=== PATIENT | male | born 1940 | race Caucasian/White ===

== ENCOUNTER 2021-04-16 07:25 | Day surgery (SDC) | payer MEDICARE, OTHER ==
[2021-04-16] VITALS (8 sets, daily range): BP systolic 128–166; BP diastolic 77–99
[~2021-04-16] VITALS: Ht 177.8 cm; Wt 95.8 kg
[2021-04-16] MEDS ORDERED: ceFAZolin inj. 2,000 MG in normal saline soln 50 ML IV ONE (08:05)
[2021-04-16] MEDS ORDERED: normal saline 1000ml 1,000 ML IV PRN (08:05)
[2021-04-16] MEDS ORDERED: VANCOMYCIN 1,500MG in NS 300 ML IVPB IV ONE (08:05)
[2021-04-16] MEDS ORDERED: ceFAZolin 2gm in dextrose, iso 50 ML IV ONE (08:20)
[2021-04-16 08:32] LABS: HEMATOCRIT 39.6 % (42.0-52.0); RED CELL DISTRIBUTION WIDTH 14.7 % (11.5-14.5)
[2021-04-16 08:34] LABS: BASOPHILS # (AUTO) 0.1 X10'3 (0-0.2); BASOPHILS % (AUTO) 0.8 % (0-1); EOSINOPHILS # (AUTO) 0.1 X10'3 (0-0.9); EOSINOPHILS % (AUTO) 2.2 % (0-6); HEMOGLOBIN 13.5 g/dl (14.0-17.9); LYMPHOCYTES # (AUTO) 0.6 X10'3 (1.1-4.8); LYMPHOCYTES % (AUTO) 8.6 % (21-51); MEAN CORPUSCULAR HEMOGLOBIN 35.5 PG (27.0-31.0); MEAN CORPUSCULAR HGB CONC 34.1 g/dL (33.0-36.5); MEAN CORPUSCULAR VOLUME 104.1 FL (78-98); MEAN PLATELET VOLUME 6.8 FL (7.4-10.4); MONOCYTES # (AUTO) 0.4 X10'3 (0-0.9); MONOCYTES % (AUTO) 6.2 % (2-12); NEUTROPHILS # (AUTO) 5.5 X10'3 (1.8-7.7); NEUTROPHILS % (AUTO) 82.2 % (42-75); PLATELET COUNT 408 X10'3 (140-440); WHITE BLOOD COUNT 6.7 X10'3 (4.5-11.0)
[2021-04-16] MEDS ORDERED: RUXO5TAB PO (08:34)
[2021-04-16] MEDS ORDERED: FEBU40TA3 PO (08:34)
[2021-04-16] MEDS ORDERED: GUAN2TAB PO (08:34)
[2021-04-16] MEDS ORDERED: LOSA50TA64 PO (08:34)
[2021-04-16] MEDS ORDERED: VERA120C3 PO (08:34)
[2021-04-16] MEDS ORDERED: LMEF1TAB2 (08:34)
[2021-04-16] MEDS ORDERED: PANT40TA54 PO (08:34)
[2021-04-16] MEDS ORDERED: ATOR10TA70 PO (08:34)
[2021-04-16] MEDS ORDERED: LEVO25TA7 PO (08:34)
[2021-04-16] MEDS ORDERED: CLON0.1T2 PO (08:34)
[2021-04-16] MEDS ORDERED: midazolam 1 mg/ML 2ml injection ONE (08:47)
[2021-04-16] MEDS ORDERED: fentaNYL/PF 50MCG/1 ML 2ML syringe ONE (08:47)
[2021-04-16] MEDS ORDERED: vancomycin 1,000mg inj ONE (08:48)
[2021-04-16] MEDS ORDERED: LIDOCAINE 2% w/EPI 1:100:000 30mL injection MDV**cath lab 1 only ONE (08:49)
[2021-04-16 08:51] LABS: ALBUMIN 3.9 G/DL (3.4-5.0); ANION GAP 10 (8-16); BLOOD UREA NITROGEN 15 MG/DL (7-18); BUN/CREATININE RATIO 8.6 (5.4-32.0); CHLORIDE 106 MMOL/L (99-107); CREATININE 1.75 MG/DL (0.60-1.10); GLUCOSE 110 MG/DL (70-104); MAGNESIUM 1.6 MG/DL (1.5-2.4); POTASSIUM 4.1 MMOL/L (3.5-5.1); SODIUM 144 MMOL/L (135-145); TOTAL CARBON DIOXIDE 27.7 MMOL/L (24-32); eGFR 38 ML/MIN
== END 2021-04-16 13:10 | disposition home or self-care (01) ==
LOC: SSTAY O 07:25
PROVIDERS: ATTEND Internal Medicine Cardiovascular Disease
DX: I44.2 Atrioventricular block, complete (principal); I49.5 Sick sinus syndrome; I10 Essential (primary) hypertension; E78.5 Hyperlipidemia, unspecified; D75.81 Myelofibrosis; E03.9 Hypothyroidism, unspecified; Z85.828 Personal history of other malignant neoplasm of skin; Z98.890 Other specified postprocedural states; Z79.899 Other long term (current) drug therapy; Z72.89 Other problems related to lifestyle; Z88.8 Allergy status to other drugs, medicaments and biological substances; Z88.2 Allergy status to sulfonamides
CPT/HCPCS: 33208; 36415; 71045; 80048; 83735; 85025; 85610; 93005; 99152; 99153; C1785; C1894; C1898; J2250; J3010; J3370; J7030; J7040; A4620; A6258

== ENCOUNTER → 2021-06-01 | Day surgery (SDC) | payer MEDICARE, OTHER ==
[2021-06-01] VITALS (7 sets, daily range): BP systolic 135–159; BP diastolic 82–96
[~2021-06-01] MED LIST: ATOR10TA70 PO; CLON0.1T2 PO; FEBU40TA3 PO; GUAN2TAB PO; LEVO25TA7 PO; LIDOcaine 1% W/epiNEPHrine 1:100,000 20ml vial ONE; LMEF1TAB2; LOSA50TA64 PO; PANT40TA54 PO; RUXO5TAB PO; VERA120C3 PO; cefazolin/dext.iso 2gm/100ml 100 ML IV ONE; fentaNYL/PF 50MCG/1 ML 2ML syringe ONE; midazolam 1 mg/ML 2ml injection ONE; normal saline 1000ml 1,000 ML IV SCH; vancomycin 1,000mg inj ONE; vancomycin/NS 1 GM ADD-VANTAGE 250 ML X 1 DOSE IV ONE
[2021-06-01 12:17] LABS: ALBUMIN 3.6 G/DL (3.4-5.0); ANION GAP 13 (8-16); BLOOD UREA NITROGEN 16 MG/DL (7-18); BUN/CREATININE RATIO 9.4 (5.4-32.0); CALCIUM 9.3 MG/DL (8.5-10.1); CHLORIDE 106 MMOL/L (99-107); GLUCOSE 102 MG/DL (70-104); MAGNESIUM 1.8 MG/DL (1.5-2.4); POTASSIUM 4.1 MMOL/L (3.5-5.1); SODIUM 141 MMOL/L (135-145); TOTAL CARBON DIOXIDE 22.1 MMOL/L (24-32); eGFR 39 ML/MIN
[2021-06-01 12:18] LABS: BASOPHILS % (AUTO) 0.6 % (0-1); EOSINOPHILS % (AUTO) 0.9 % (0-6); HEMATOCRIT 36.1 % (42.0-52.0); HEMOGLOBIN 12.3 g/dl (14.0-17.9); LYMPHOCYTES # (AUTO) 0.6 X10'3 (1.1-4.8); LYMPHOCYTES % (AUTO) 12.9 % (21-51); MEAN CORPUSCULAR HEMOGLOBIN 35.2 PG (27.0-31.0); MEAN CORPUSCULAR VOLUME 103.8 FL (78-98); MEAN PLATELET VOLUME 6.8 FL (7.4-10.4); MONOCYTES # (AUTO) 0.3 X10'3 (0-0.9); MONOCYTES % (AUTO) 5.8 % (2-12); NEUTROPHILS # (AUTO) 3.8 X10'3 (1.8-7.7); NEUTROPHILS % (AUTO) 79.8 % (42-75); PLATELET COUNT 344 X10'3 (140-440); RED BLOOD COUNT 3.48 X10'6 (4.70-6.10); RED CELL DISTRIBUTION WIDTH 15.8 % (11.5-14.5); WHITE BLOOD COUNT 4.8 X10'3 (4.5-11.0)
== END | disposition home or self-care (01) ==
LOC: SSTAY O 11:02
PROVIDERS: ATTEND Internal Medicine Cardiovascular Disease
DX: T82.190A Other mechanical complication of cardiac electrode, initial encounter (principal); I44.2 Atrioventricular block, complete; I10 Essential (primary) hypertension; E78.5 Hyperlipidemia, unspecified; D75.81 Myelofibrosis; E03.9 Hypothyroidism, unspecified; Z85.828 Personal history of other malignant neoplasm of skin; Z79.899 Other long term (current) drug therapy; Z98.890 Other specified postprocedural states; Z88.2 Allergy status to sulfonamides; Z88.8 Allergy status to other drugs, medicaments and biological substances; Z72.89 Other problems related to lifestyle; Y83.8 Other surgical procedures as the cause of abnormal reaction of the patient, or of later complication, without mention of misadventure at the time of the procedure; Y92.89 Other specified places as the place of occurrence of the external cause
CPT/HCPCS: 33215; 36415; 80048; 83735; 85025; 85610; 93005; 99152; J2250; J3010; J3370; 33222; 99153; A4620; A6258

== ENCOUNTER 2022-02-25 11:01 | Day surgery (SDC) | payer MEDICARE, OTHER ==
[2022-02-25] VITALS (9 sets, daily range): BP systolic 124–177; BP diastolic 80–98
[~2022-02-25] VITALS: Ht 177.8 cm; Wt 94.1 kg
[~2022-02-25 11:01] MED LIST changes: -LIDOcaine 1% W/epiNEPHrine 1:100,000 20ml vial ONE; -cefazolin/dext.iso 2gm/100ml 100 ML IV ONE; -fentaNYL/PF 50MCG/1 ML 2ML syringe ONE; +iohexol 350MG/ML 100ml bottle IV ONE; -midazolam 1 mg/ML 2ml injection ONE; -normal saline 1000ml 1,000 ML IV SCH; -vancomycin 1,000mg inj ONE; -vancomycin/NS 1 GM ADD-VANTAGE 250 ML X 1 DOSE IV ONE
[2022-02-25] MEDS ORDERED: VALS160T30 PO (11:27)
[2022-02-25] MEDS ORDERED: CHLO25TA10 PO (11:27)
[2022-02-25] MEDS ORDERED: diphenhydrAMINE 25mg capsule PO PRN (11:40)
[2022-02-25] MEDS ORDERED: normal saline 1,000 ML IV SCH (11:40)
[2022-02-25 12:06] LABS: BASOPHILS % (AUTO) 0.6 % (0-1); EOSINOPHILS % (AUTO) 0.2 % (0-6); HEMATOCRIT 42.5 % (42.0-52.0); HEMOGLOBIN 14.8 g/dl (14.0-17.9); LYMPHOCYTES # (AUTO) 0.9 X10'3 (1.1-4.8); LYMPHOCYTES % (AUTO) 16.4 % (21-51); MEAN CORPUSCULAR HEMOGLOBIN 36.3 PG (27.0-31.0); MEAN CORPUSCULAR HGB CONC 34.8 g/dL (33.0-36.5); MEAN CORPUSCULAR VOLUME 104.2 FL (78-98); MEAN PLATELET VOLUME 6.2 FL (7.4-10.4); MONOCYTES # (AUTO) 0.2 X10'3 (0-0.9); MONOCYTES % (AUTO) 4.7 % (2-12); NEUTROPHILS # (AUTO) 4.2 X10'3 (1.8-7.7); NEUTROPHILS % (AUTO) 78.1 % (42-75); PLATELET COUNT 406 X10'3 (140-440); RED BLOOD COUNT 4.08 X10'6 (4.70-6.10); RED CELL DISTRIBUTION WIDTH 14.7 % (11.5-14.5); WHITE BLOOD COUNT 5.3 X10'3 (4.5-11.0)
[2022-02-25 12:08] LABS: ALBUMIN 4.7 G/DL (3.4-5.0); ANION GAP 11 (8-16); BLOOD UREA NITROGEN 24 MG/DL (7-18); BUN/CREATININE RATIO 12.4 (5.4-32.0); CHLORIDE 99 MMOL/L (99-107); CREATININE 1.94 MG/DL (0.60-1.10); GLUCOSE 105 MG/DL (70-104); MAGNESIUM 1.8 MG/DL (1.5-2.4); POTASSIUM 3.8 MMOL/L (3.5-5.1); SODIUM 137 MMOL/L (135-145); TOTAL CARBON DIOXIDE 27.1 MMOL/L (24-32); eGFR 33 ML/MIN
[2022-02-25] MEDS ORDERED: sodium bicarbonate (8.4%) inj. 150 ML in dextrose 5%-water 1,000 ML IV ONE (12:50)
[2022-02-25] MEDS ORDERED: verapamil 2.5 mg/ml inj IV ONE (14:10)
[2022-02-25] MEDS ORDERED: midazolam 1 mg/ML 2ml injection ONE ×2 (14:10→15:12)
[2022-02-25] MEDS ORDERED: fentaNYL/PF 50MCG/1 ML 2ML syringe ONE (14:10)
[2022-02-25] MEDS ORDERED: nitroGLYCERIN-Tridil 50MG/D5W 250 ML IV ONE (14:10)
[2022-02-25] MEDS ORDERED: iohexol 350MG/ML 100ml bottle IV ONE (14:11)
[2022-02-25] MEDS ORDERED: heparin 1,000unit/ml 10ml vial 10 ML ONE (14:11)
[2022-02-25] MEDS ORDERED: HYDROcodone/acetaminophen 10/325mg tab PO PRN (16:40)
[2022-02-25] MEDS ORDERED: ondansetron/PF 4mg/2ml inj IV PRN (16:40)
[2022-02-25] MEDS ORDERED: proCHLORperazine 10 MG/2 ml inj IV PRN (16:40)
[2022-02-25] MEDS ORDERED: acetaminophen 325mg tablet PO PRN (16:40)
[2022-02-25] MEDS ORDERED: HYDROcodone/acetaminophen 5mg/325mg tablet PO PRN (16:40)
[2022-02-25] MEDS ORDERED: normal saline 1000ml 1,000 ML IV SCH (16:40)
== END 2022-02-25 19:15 | disposition home or self-care (01) ==
LOC: SSTAY O 11:01
PROVIDERS: ATTEND Internal Medicine Cardiovascular Disease
DX: R06.09 Other forms of dyspnea (principal); I44.2 Atrioventricular block, complete; I10 Essential (primary) hypertension; D75.81 Myelofibrosis; E78.5 Hyperlipidemia, unspecified; E03.9 Hypothyroidism, unspecified; Z85.828 Personal history of other malignant neoplasm of skin; Z95.0 Presence of cardiac pacemaker; Z98.890 Other specified postprocedural states; Z79.899 Other long term (current) drug therapy; Z72.89 Other problems related to lifestyle; Z88.8 Allergy status to other drugs, medicaments and biological substances; Z88.2 Allergy status to sulfonamides
CPT/HCPCS: 36415; 80048; 83735; 85025; 85610; 93005; 93460; 99152; 99153; C1751; C1760; C1769; C1894; J1644; J2250; J3010; J3490; J7030; J7070; Q9967; A4620; A6258; A6402

== ENCOUNTER 2023-05-09 10:41 | Outpatient (CLI) | payer MEDICARE, OTHER ==
[~2023-05-09 10:41] MED LIST changes: +CHLO25TA10 PO; -LOSA50TA64 PO; +VALS160T30 PO; -iohexol 350MG/ML 100ml bottle IV ONE
== END 2023-05-09 23:59 | disposition home or self-care (01) ==
LOC: VAS 10:41
PROVIDERS: ATTEND Internal Medicine Cardiovascular Disease
DX: I82.403 Acute embolism and thrombosis of unspecified deep veins of lower extremity, bilateral (principal)
CPT/HCPCS: 93970